=== PATIENT | female | born 1990 | race Caucasian/White ===

== ENCOUNTER 2022-08-26 08:54 | Emergency (ER) | payer MEDICAID ==
[~2022-08-26] VITALS: Ht 160 cm; Wt 66.8 kg
[2022-08-26 09:00] VITALS: BP 119/81
[2022-08-26] MEDS ORDERED: CEPH250T PO ×3 (09:27→11:02)
[2022-08-26] MEDS ORDERED: DOXY-356 PO ×3 (09:27→11:02)
[2022-08-26] MEDS ORDERED: TRAM50TA2 PO (09:27)
== END 2022-08-26 09:37 | disposition home or self-care (01) ==
LOC: ER 08:55
DX: S61.216A Laceration without foreign body of right little finger without damage to nail, initial encounter (principal); L03.011 Cellulitis of right finger; W26.0XXA Contact with knife, initial encounter; Y93.89 Activity, other specified; Y92.89 Other specified places as the place of occurrence of the external cause; Y99.8 Other external cause status
CPT/HCPCS: 29125; 99283; A6449